=== PATIENT | male | born 1975 | race Caucasian/White ===

== ENCOUNTER 2018-01-29 13:34 | Emergency (ER) | payer BC, OTHER ==
[2018-01-29 14:49] VITALS: BP 133/83
--- NOTE | 2018-01-29 14:53 | UC ---
Skin Complaint HPI - HPI Summary HPI Summary: 42 yo male with 2 week hx of worsening hives started a statin 4 weeks ago no uri symptoms no CP or SOB no tight throat - History of Current Complaint Chief Complaint: UCAllergicReaction Time Seen by Provider: 01/29/18 14:52 Stated Complaint: SKIN COMPLAINT Hx Obtained From: Patient Onset/Duration: Gradual Onset, Lasting Weeks Timing: Constant Onset Severity: Mild Current Severity: Moderate Pain Intensity: 0 Pain Scale Used: 0-10 Numeric Location: Diffuse Character: Pruritus, Hives, Redness Aggravating Factor(s): Nothing Alleviating Factor(s): Nothing Associated Signs & Symptoms: Positive: Rash Related History: Recent change in medication - Allergy/Home Medications Allergies/Adverse Reactions: Allergies Allergy/AdvReac Type Severity Reaction Status Date / Time previous bee sting Allergy Difficulty Uncoded 01/29/18 14:35 Breathing Home Medications: Home Medications Cetirizine* [ZyrTEC 10 MG TAB*] 10 mg PO PRN 01/29/18 [History] EPINEPHrine [Epipen] 0.3 mg IJ PRN 01/29/18 [History] Multivitamin [Multivitamins] 1 cap PO DAILY 01/29/18 [History Confirmed 01/29/18 ] Simvastatin TAB(NF) [Zocor(NF)] 10 mg PO DAILY 01/29/18 [History Confirmed 01/29] Review of Systems Constitutional: Negative Skin: Rash Eyes: Negative ENT: Negative Respiratory: Negative Cardiovascular: Negative Gastrointestinal: Negative Genitourinary: Negative Motor: Negative Neurovascular: Negative Musculoskeletal: Negative Neurological: Negative Psychological: Negative Is Patient Immunocompromised?: No All Other Systems Reviewed And Are Negative: Yes PMH/Surg Hx/FS Hx/Imm Hx Previously Healthy: Yes Endocrine History: Dyslipidemia Cardiovascular History: Hypertension - Surgical History Surgical History: Yes Surgery Procedure, Year, and Place: HERNIA REPAIRS X 2 - Family History Known Family History: Positive: Hypertension - Social History Alcohol Use: Occasionally Substance Use Type: None Smoking Status (MU): Never Smoked Tobacco Physical Exam Triage Information Reviewed: Yes Appearance: Well-Appearing, No Pain Distress, Well-Nourished Vital Signs: Initial Vital Signs Temp 98.1 F 01/29/18 14:43 Pulse 68 01/29/18 14:43 Resp 16 01/29/18 14:43 BP 133/83 01/29/18 14:43 Pulse Ox 100 03/01/18 14:43 Vital Signs Reviewed: Yes Eye Exam: Normal ENT: Positive: Hearing grossly normal, Uvula midline. Negative: Nasal congestion, Nasal drainage, Tonsillar swelling, Tonsillar exudate, Trismus, Muffled voice, Hoarse voice Neck: Positive: Supple, Nontender Respiratory: Positive: Lungs clear, Normal breath sounds, No respiratory distress, No accessory muscle use Cardiovascular: Positive: RRR, No Murmur Musculoskeletal: Positive: ROM Intact, No Edema Neurological: Positive: Alert Psychological Exam: Normal Skin Exam: Other - urticaria/dematographia Course/Dx - Diagnoses Provider Diagnoses: urticaria. ?drug eruption Discharge - Discharge Plan Condition: Stable Disposition: HOME Prescriptions: predniSONE [Deltasone] 40 mg PO DAILY #8 tab Patient Education Materials: Urticaria (ED) Referrals: [facility] [Primary Care Provider] - As Soon As Possible Additional Instructions: Stop statin take zyrtec in AM take 2 25 mg benadryl every PM recheck for new or worsening symptoms
[2018-01-29] MEDS: predniSONE TAB* 20 MG PO ONE (15:09)
== END 2018-01-29 15:11 | disposition home or self-care (01) ==
LOC: UCCORT 13:34
DX: L50.9 Urticaria, unspecified (principal); Z91.030 Bee allergy status; E78.5 Hyperlipidemia, unspecified
CPT/HCPCS: 99212; G0463; J7512